=== PATIENT | male | born 1975 | race Caucasian/White ===

== ENCOUNTER 2019-09-12 20:51 | Emergency (ER) | payer BC ==
[~2019-09-12] VITALS: Ht 177.8 cm; Wt 82.7 kg
--- NOTE | 2019-09-12 21:23 | NUR ---
PT SITTING IN BED, CONNECTED TO BP AND O2 MONITORS, SIDE RAIL UP, CALL LIGHT AND BELONGINGS IN REACH. PT WAS AMBULATORY TO ROOM. PT HAS A HX OF LEFT ANKLE SX WHICH GIVES HIM A BASELINE OF LIMITED MOTION AND DARK DISCOLORATION OF SKIN. PT NOTED NEW SWELLING IN THIS AREA 2-3 DAYS AGO.
[2019-09-12 21:27] LABS: HCT (SEDRATE) 44.7 % (39.2-51.8)
[2019-09-12 21:29] LABS: MEAN CORPUSCULAR HEMOGLOBIN 30.3 pg (27.5-34.5); MEAN CORPUSCULAR HGB CONC 32.7 g/dL (33.2-36.2); MEAN CORPUSCULAR VOLUME 92.5 fL (81-97); MEAN PLATELET VOLUME 10.1 fL (7.4-10.4); PLATELET COUNT 303 x10^3/uL (130-400); RED BLOOD COUNT 4.79 x10^6/uL (4.38-5.82); RED CELL DISTRIBUTION WIDTH 13.8 % (9.4-14.8)
[2019-09-12 21:36] LABS: C-REACTIVE PROTEIN, QUANT 0.39 mg/dL (0.02-0.49)
--- NOTE | 2019-09-12 21:57 | NUR ---
PT SLEEPING, IMAGING TO BEDSIDE.
[2019-09-12 21:58] LABS: BASOPHILS # (AUTO) 0.26 x10^3/uL (0-0.1); BASOPHILS % (AUTO) 2 % (0-1); EOSINOPHILS # (AUTO) 0.57 x10^3/uL (0-0.4); EOSINOPHILS % (AUTO) 4 % (1-7); LYMPHOCYTES # (AUTO) 3.85 x10^3/uL (1-3.4); LYMPHOCYTES % (AUTO) 26 % (22-44); MD SCAN; MONOCYTES # (AUTO) 1.66 x10^3/uL (0.2-0.8); MONOCYTES % (AUTO) 11 % (2-9); NEUTROPHILS # (AUTO) 8.23 x10^3/uL (1.8-6.8); NEUTROPHILS % (AUTO) 57 % (42-75)
[2019-09-12 23:01] VITALS: BP 112/79
--- NOTE | 2019-09-12 23:04 | NUR ---
PT DRESSED SELF FOR D/C.
== END 2019-09-12 23:03 | disposition home or self-care (01) ==
LOC: ED 21:28
DX: L03.116 Cellulitis of left lower limb (principal); M25.572 Pain in left ankle and joints of left foot; M79.89 Other specified soft tissue disorders; F17.210 Nicotine dependence, cigarettes, uncomplicated
CPT/HCPCS: 36415; 83880; 84550; 85025; 85651; 86140; 99285; 99406